=== PATIENT | female | born 1960 | race Caucasian/White ===

== ENCOUNTER 2021-04-25 08:36 | Day surgery (SDC) | payer OTHER ==
[~2021-04-25 08:36] MED LIST: ASPIRIN 81 MG CHEWABLE TABLET PO ONE; DIAZEPAM 5 MG TABLET PO ONE; DiphenhydrAMINE HCL 50 MG CAPSULE PO ONE; SODIUM CHLORIDE 0.9% 1,000 ML IV ONE
[2021-04-25] MEDS ORDERED: SODIUM CHLORIDE 0.9% 1,000 ML ONE (09:19)
[2021-04-25] MEDS ORDERED: ASPIRIN 81 MG CHEWABLE TABLET ONE (09:20)
[2021-04-25] MEDS ORDERED: DIAZEPAM 5 MG TABLET ONE (09:20)
[2021-04-25] MEDS ORDERED: DiphenhydrAMINE HCL 50 MG CAPSULE ONE (09:20)
[2021-04-25 10:06] LABS: GLUCOMETER DEV NAME(LOC) SDS.; GLUCOSE,POINT OF CARE 100 MG/DL (70-110)
[2021-04-25] MEDS ORDERED: LOSA-382 PO (10:12)
[2021-04-25] MEDS ORDERED: SERT-439 PO (10:12)
[2021-04-25] MEDS ORDERED: CLOP75TA32 PO (10:12)
[2021-04-25] MEDS ORDERED: LIDOCAINE/PF 1% 30 ML VIAL ONE (13:11)
[2021-04-25] MEDS ORDERED: SODIUM BICARBONATE 50 MEQ/50 ML VIAL ONE (13:11)
[2021-04-25] MEDS ORDERED: IOHEXOL 300 MG/ML 50 ML VIAL ONE (13:11)
[2021-04-25] MEDS ORDERED: HEPARIN SODIUM 1000 UNITS/NS 1,000 ML ONE (13:12)
[2021-04-25] MEDS ORDERED: IOHEXOL 300 MG/ML 150 ML VIAL ONE (13:12)
[2021-04-25] MEDS ORDERED: IOHEXOL 300 MG/ML 100 ML VIAL ONE (13:12)
[2021-04-25 13:36] VITALS: BP 135/73
[2021-04-25] MEDS ORDERED: FentaNYL CITRATE PF 100 MCG/2 ML VIAL ONE (13:50)
[2021-04-25] MEDS ORDERED: MIDAZOLAM HCL 2 MG/2 ML VIAL ONE (13:51)
[2021-04-25] MEDS ORDERED: METF-1211 PO (13:58)
[2021-04-25] MEDS ORDERED: ASPI-1444 PO (13:58)
[2021-04-25] MEDS ORDERED: OS500 PO (13:58)
[2021-04-25] MEDS ORDERED: SIMV-43 PO (13:58)
[2021-04-25] MEDS ORDERED: METO-391 PO (13:58)
[2021-04-25] MEDS ORDERED: SUMA50TA17 PO (13:58)
[2021-04-25] MEDS ORDERED: FentaNYL CITRATE PF 100 MCG/2 ML VIAL IVP ONE ×2 (14:00)
[2021-04-25] MEDS ORDERED: LIDOCAINE 1% 30 ML/SOD BICARB 8.4% 4 ML SQ ONE (14:00)
[2021-04-25] MEDS ORDERED: HEPARIN SODIUM 1000 UNITS/NS 1,000 ML IARTER ONE (14:00)
[2021-04-25] MEDS ORDERED: MIDAZOLAM HCL 2 MG/2 ML VIAL IVP ONE ×2 (14:00)
[2021-04-25] MEDS ORDERED: IOHEXOL 300 MG/ML 150 ML VIAL IARTER ONE (14:00)
[2021-04-25 14:27] VITALS: BP 126/70
== END 2021-04-25 18:35 | disposition home or self-care (01) ==
LOC: CATHLAB 08:36
PROVIDERS: ATTEND Internal Medicine Interventional Cardiology
DX: R07.9 Chest pain, unspecified (principal); I10 Essential (primary) hypertension; E66.01 Morbid (severe) obesity due to excess calories; E78.5 Hyperlipidemia, unspecified; E11.9 Type 2 diabetes mellitus without complications; Z90.49 Acquired absence of other specified parts of digestive tract; Z79.899 Other long term (current) drug therapy; Z98.890 Other specified postprocedural states
CPT/HCPCS: 82962; 93005; 93458; 99152; C1760; J1644; J2250; J3010; J3490 ×2; J7030; Q9967 ×2